=== PATIENT | male | born 2000 | race Hispanic/Latino ===

== ENCOUNTER 2024-10-03 11:19 | Emergency (ER) | payer OTHER ==
[~2024-10-03] VITALS: Ht 175.3 cm; Wt 77.1 kg
[2024-10-03 11:20] VITALS: BP 112/76; PULSE 58; RESP 18; TEMP 98.7
[2024-10-03] MEDS ORDERED: CARB-288 OTIC (11:41)
--- NOTE | 2024-10-03 11:41 | ERN ---
General Chief Complaint: Earache Stated Complaint: EAR ACHE Time Seen by MD: 11:21 Time Seen by Midlevel: 11:21 Source: patient History of Present Illness Allergies: Coded Allergies: No Known Drug Allergies (Unverified Allergy, Unknown, 10/03/24) Past Medical History Past Medical History: No Pertinent History Past Surgical History: None ED Course Vital Signs Date Time Temp Pulse Resp B/P (MAP) Pulse Ox O2 Delivery O2 Flow Rate FiO2 10/03/24 11:20 98.8 58 18 112/76 99 Room Air 0 DX & DISP Disposition: Discharge Departure Impression: Primary Impression: Impacted cerumen of both ears Condition: Stable Scripts Carbamide Peroxide (Ear Wax Removal) 6.5 % Drops 5 DROP OTIC DAILY for 7 Days, #15 ML 0 Refills Prov: JENNY NUÑEZ 10/03/24 Referrals: SELF,REFERRAL (PCP) Time of Disposition: 11:39 I have reviewed the case, and I agree with, Diagnosis and Plan JENNY NUÑEZ Oct 03, 2024 11:41
== END 2024-10-03 11:48 | disposition home or self-care (01) ==
LOC: EDH 11:19 → EDBD 11:19 → EDH 11:48
DX: H61.23 Impacted cerumen, bilateral (principal)
CPT/HCPCS: 99282